=== PATIENT | female | born 1960 | race Caucasian/White ===

== ENCOUNTER → 2022-10-08 | Outpatient (CLI) | payer SELFPAY ==
--- NOTE | 2022-10-08 12:42 | CT_ITS ---
STUDY: CT MAXILLOFACIAL SINUSES REASON FOR EXAM: Female, 61 years old. Chronic sinusitis. RADIATION DOSAGE (If Supplied By Facility): CTDIvol = ( 28.14 ) mGy, DLP = ( 711.01 ) mGycm TECHNIQUE: The patient was scanned in a multi detector CT scanner. High resolution axial imaging was performed without the administration of intravenous contrast material. Sagittal and coronal images were reconstructed. Individualized dose optimization techniques were used for this CT. COMPARISON: None. FINDINGS: FRONTAL SINUSES: Opacification of the right frontal sinus. ETHMOIDAL SINUSES: Opacification of the right ethmoid air cells with minimal mucoperiosteal reaction seen on the left. MAXILLARY SINUSES: Near occlusion of the right maxillary sinus. The left maxillary sinus is clear. SPHENOIDAL SINUSES: Mucoperiosteal reaction seen in both maxillary sinuses with near occlusion. There is patency of the left maxillary infundibula with normal uncinate processes, ethmoid bullae, and hiatus semilunaris. The right is occluded. Normal soft tissue extends from the right maxillary sinus into the right nasal cavity. There is limited visualization of the right nasal turbinates. The left are unremarkable. Bilateral middle turbinates.. Mild nasal septal deviation to the left. . There is patency of the left nasal airway. The visualized osseous structures are normal. The visualized bilateral orbital contents are normal. CT/Sinus/Facial Bone IMPRESSION: Marked, predominately right-sided, sinusitis with obstruction of the right nasal cavity. Electronically Signed: Jose Temple DO at 21:07 EDT Reading Location ID and State: [facility] / [place] Tel [phone], Service support ,
== END | disposition home or self-care (01) ==
PROVIDERS: PCP Family Medicine Geriatric Medicine; Referring Provider Otolaryngology; Visit Provider Otolaryngology
DX: J32.8 Other chronic sinusitis (principal)
CPT/HCPCS: 70486

== ENCOUNTER → 2022-12-10 | Outpatient (CLI) | payer SELFPAY ==
--- NOTE | 2022-12-10 | NASAL_PTH ---
PATIENT: ADOLFO GATES LOC: [facility] U#:[id number] AGE/SX: 62/F ROOM: RE12/10/[address]: Dr. Isidoro Cruz MD : 1960 BED: DIS: 12/10/2022 SPEC #: [id number] RECD: 12/10/22 14:41 STATUS: JHONNY SHANKAR #: [id number] GREGORY: 12/10/22 00:[address]: Isidoro Cruz DEPT: SURGICAL PATHOLOGY RECD BY: Anila Duffy ENTERED: 12/11/22 08:51 SP TYPE: NASAL SPEC OTHR DR: Dr. Josias Cruz MD [facility] Tissues: Ethmoid sinus, NOS Procedures: Special Stain Group I Surgery Specimen Level III GMS Stain (control) HEADER OPERATION: Functional endoscopic sinus surgery, septoplasty, resection of inferior turbinates PRE-OP DIAGNOSIS: Polyp of nasal cavity TISSUE SUBMITTED: Right nasal sinus contents MICROSCOPIC DIAGNOSIS Right nasal sinus contents, curettings: Polypoid fragments of respiratory mucosa with acute and chronic sinusitis. Negative for fungal organisms. See comment. AM:bettina 12/12/2022 COMMENT GMS stain with matched control was used in the evaluation of this case. MICROSCOPIC DESCRIPTION Slides are reviewed. GROSS DESCRIPTION Received in fixative is one container labeled with the patient's name and designated right sinus contents. The specimen consists of multiple irregular fragments of light to dark girard soft tissue that in aggregate measure 2.5 x 1.0 x 0.2 cm. The specimen is totally submitted in one cassette. / AM:bettina 12/11/2022 TC:2 CPT: 81399, 61550
== END | disposition home or self-care (01) ==
PROVIDERS: PCP Family Medicine Geriatric Medicine; Visit Provider Otolaryngology
DX: J33.9 Nasal polyp, unspecified (principal)
CPT/HCPCS: 88304; 88305; 88312

== ENCOUNTER → 2023-04-15 | Outpatient (CLI) | payer SELFPAY | END | disposition home or self-care (01) | PROVIDERS: PCP Family Medicine Geriatric Medicine; Visit Provider Otolaryngology | DX: J32.9 Chronic sinusitis, unspecified (principal) | CPT/HCPCS: 87070; 87077; 87186; 87205 ==

== ENCOUNTER → 2024-03-25 | Outpatient (CLI) | payer OTHER, SELFPAY ==
[2024-04-04 21:07] LABS: HPV APTIMA, High Risk Negative (Negative)
[2024-04-06 11:35] LABS: HPV Reflexed? YES, CHARGE PATIENT
== END | disposition home or self-care (01) ==
PROVIDERS: PCP Family Medicine Geriatric Medicine; Referring Provider Obstetrics & Gynecology; Visit Provider Obstetrics & Gynecology
DX: Z12.4 Encounter for screening for malignant neoplasm of cervix (principal)
CPT/HCPCS: 87624; 88175; G0145

== ENCOUNTER 2024-04-21 14:36 | Outpatient (CLI) | payer OTHER, SELFPAY ==
--- NOTE | 2024-04-21 14:36 | BD_ITS ---
STUDY: DUAL ENERGY X-RAY ABSORPTIOMETRY / DXA REASON FOR EXAM: Female, 63 years old. Screening for osteoporosis TECHNIQUE: Bone Mineral Density (BMD) measurements of lumbar spine and bilateral hips were obtained. COMPARISON: None. FINDINGS: Lumbar Spine (L1-L4): g/cm2 (0.987) / T-score (-0.5) / Z-score (1.2) Findings are suggestive of normal bone density with a low fracture risk. Left Femur Total: g/cm2 (0.921) / T-score (-0.2) / Z-score (1.1) Left Femoral Neck: g/cm2 (0.770) / T-score (-0.7) / Z-score (0.8) Right Femur Total: g/cm2 (0.920) / T-score (-0.2) / Z-score (1.1) Right Femoral Neck: g/cm2 (0.747) / T-score (-0.9) / Z-score (0.6) BD/Dexa Bone Density Study IMPRESSION: The patient is considered normal as outlined below according to World Walt Organization (WHO) criteria with a low fracture risk. Reference Information: The T-score is the number of standard deviations above or below the standard which is normal for young adults at their peak bone mineral density. The World Health Organization (WHO) interprets the T-scores as follows: Above -1 Normal bone density Between -1 and -2.5 Osteopenia Equal to / or below -2.5 Osteoporosis As a practical clinical guideline, osteopenia may be graded as follows: Mild -1 through -1.5 Moderate -1.6 through -2.0 Severe -2.1 through -2.4 The Z-score is the number of standard deviations above or below age-matched controls. A Z-score of less than -1.5 would be considered abnormal. References: 1. NIH Osteoporosis and Related Bone Diseases www osteo.org 2. International Society for Clinical Densitometry www iscd.org 3. National Osteoporosis Foundation www nof.org Electronically Signed: Wilberto Lemon MD at 14:15 EST ,
--- NOTE | 2024-04-21 14:36 | BI_ITS ---
MAMMOGRAPHY - BILATERAL SCREENING REASON FOR EXAM: Female, 63 years old. Routine annual screening examination. PERTINENT HISTORY: Sister with breast cancer. TECHNIQUE: Digital bilateral breast magdalena (3D mammographic acquisition) in the CC and MLO projections. 2-D mediolateral oblique (MLO) and craniocaudad (CC) views of both breasts were obtained. CAD: Full Field Digital Mammography with Computer Added Detection was performed. COMPARISON: No comparison mammograms available at this time. If any prior films become available, an addendum to this report can be generated. FINDINGS: Breast Composition: The breasts are heterogeneously dense, which may obscure small masses. There are no dominant masses or suspicious calcifications. Small bilateral axillary lymph nodes. No other significant abnormalities are identified. BI/SCRN MAMM (CAD)W/MAGDALENA BILAT IMPRESSION: Negative screening mammogram. Yearly followup mammogram recommended. (A) ASSESSMENT CATEGORY: BIRADS Category 2: Benign. A letter regarding these results will be sent to the patient by the facility within 30 days. Approximately 10% of breast cancers are not detected by mammography. A normal mammogram should not delay biopsy of a clinically suspicious abnormality. [id number] Electronically Signed: Wilberto Lemon MD at 15:21 EDT ,
== END 2024-04-21 23:59 | disposition home or self-care (01) ==
LOC: OPBD 14:36
PROVIDERS: PCP Physician Assistant; Referring Provider Obstetrics & Gynecology; Visit Provider Obstetrics & Gynecology
DX: Z12.31 Encounter for screening mammogram for malignant neoplasm of breast (principal); Z80.3 Family history of malignant neoplasm of breast; Z13.820 Encounter for screening for osteoporosis
CPT/HCPCS: 77063; 77067; 77080

== ENCOUNTER → 2025-06-19 | Outpatient (CLI) | payer OTHER, SELFPAY ==
[2025-06-26 10:08] LABS: HPV APTIMA, High Risk Negative (Negative)
== END | disposition home or self-care (01) ==
LOC: LABSPEC 16:06
PROVIDERS: PCP Physician Assistant; Visit Provider Nurse Practitioner Family
DX: Z12.4 Encounter for screening for malignant neoplasm of cervix (principal); R87.610 Atypical squamous cells of undetermined significance on cytologic smear of cervix (ASC-US)
CPT/HCPCS: 87624; 88175; G0145